=== PATIENT | male | born 1995 | race African-American/Black ===

== ENCOUNTER 2016-08-31 14:49 | Emergency (ER) | payer SELFPAY ==
[2016-08-31] MEDS ORDERED: Bacitracin Zinc 1 Packet ONE (15:08)
[2016-08-31] MEDS ORDERED: Ketorolac Tromethamine 60 MG/2 ML VIAL ONE (15:33)
== END 2016-08-31 15:54 | disposition home or self-care (01) ==
LOC: BURERS 14:49
DX: S40.021A Contusion of right upper arm, initial encounter (principal); S60.312A Abrasion of left thumb, initial encounter; S60.411A Abrasion of left index finger, initial encounter; I10 Essential (primary) hypertension; Z87.891 Personal history of nicotine dependence; V80.010A Animal-rider injured by fall from or being thrown from horse in noncollision accident, initial encounter
CPT/HCPCS: 96372; J1885

== ENCOUNTER 2018-02-23 08:22 | Emergency (ER) | payer SELFPAY | END 2018-02-23 09:00 | disposition home or self-care (01) | LOC: BURERS 08:22 | DX: R07.89 Other chest pain (principal); I10 Essential (primary) hypertension; Z87.891 Personal history of nicotine dependence | CPT/HCPCS: 93005 ==